=== PATIENT | female | born 2000 | race Two or more races ===

== ENCOUNTER 2019-01-08 17:09 | Emergency (ER) | payer MEDICAID ==
[~2019-01-08] VITALS: Ht 154.9 cm; Wt 80.8 kg
[2019-01-08 17:52] VITALS: BP 108/77
[2019-01-08] MEDS ORDERED: DEXAMETHASONE 4 MG TABLET PO ONE (18:00)
--- NOTE | 2019-01-08 18:30 | NUR ---
KASIE STRINGER, AT BEDSIDE TO EVALUATE PT.
[2019-01-08] MEDS ORDERED: DEXAMETHASONE 4 MG TABLET ONE ×2 (18:57→19:01)
--- NOTE | 2019-01-08 19:02 | NUR ---
PT MEDICATED PER MAR.
--- NOTE | 2019-01-08 19:14 | NUR ---
KASIE SRTINGER, AT BEDSIDE TO DISCUSS ED FINDINGS AND D/C INFO.
--- NOTE | 2019-01-08 19:21 | NUR ---
Patient/Caregiver given discharge instructions and they have confirmed that they understand the instructions. Patient ambulatory with steady gait.
== END 2019-01-08 19:22 | disposition home or self-care (01) ==
LOC: ED 19:20
DX: J02.0 Streptococcal pharyngitis (principal); R11.0 Nausea
CPT/HCPCS: 87880; 99283